=== PATIENT | female | born 1950 | race Caucasian/White ===

== ENCOUNTER 2020-01-20 11:27 | Emergency (ER) | payer MEDICARE ==
[2020-01-20] MEDS ORDERED: Meclizine HCl 25 MG TAB ONE (12:32)
--- NOTE | 2020-01-20 12:37 | CT ---
CT Brain WO Con History: Dizziness with abnormal features Comparison: CT brain 2007 Findings: Mild atrophy. 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 No acute hemorrhage or territorial infarction. No midline shift. No mass effect. Mild subcortical simeno rovascular ischemic changes, greatest in the frontal lobes. Calvarium is intact. Paranasal sinuses and mastoids are clear. Impression: Chronic findings. No acute intracranial abnormality.
[2020-01-20 12:56] LABS: PTT 34.9 SEC (22.9-36.1)
[2020-01-20 13:13] LABS: ALT (SGPT) 14 U/L (8-55); AST (SGOT) 18 U/L (5-34); Albumin 4.1 g/dL (3.4-4.8); Alkaline Phosphatase 71 U/L (40-110); Anion Gap 14 mmol/L (10-20); BUN (Urea Nitrogen) 14 mg/dL (9.8-20.1); Band 2 % (5-11); Bilirubin, Total 0.3 mg/dL (0.2-1.2); Calc. Creatinine Clearance 0 mL/min (70-130); Carbon Dioxide 24 mmol/L (23-31); Chloride 107 mmol/L (98-107); Eosinophils 3 % (0-10); Estimated GFR-MDRD 77; Globulin 2.5 g/dL (2.4-3.5); Glucose 107 mg/dL (83-110); Hemoglobin 11.9 g/dL (12.0-16.0); Lymphocytes 10 % (21-51); MDiff Complete? YES; Magnesium 1.9 mg/dL (1.6-2.6); Mean Corpuscular HGB CONC 31.3 g/dL (32.0-36.0); Mean Corpuscular Hemoglobin 26.9 pg (27.0-31.0); Mean Corpuscular Volume 85.9 fL (78.0-98.0); Mean Platelet Volume 7.7 fL (7.4-10.4); Monocytes 2 % (0-10); Neutrophil 71 % (42-75); Platelet Count 200 thou/uL (130-400); Platelet Morphology Comment Appears Adequate; Protein, Total 6.6 g/dL (6.0-8.3); RBC Distribution Width 12.6 % (11.5-14.5); Reactive Lymphocytes 12 % (0-10); Red Blood Cell (RBC) Count 4.43 mill/uL (4.20-5.40); Sodium 141 mmol/L (136-145); White Blood Cell (WBC) Count 10.3 thou/uL (4.8-10.8)
== END 2020-01-20 14:20 | disposition home or self-care (01) ==
LOC: MADERS 11:27
DX: H81.10 Benign paroxysmal vertigo, unspecified ear (principal); J06.9 Acute upper respiratory infection, unspecified; E78.5 Hyperlipidemia, unspecified; E78.00 Pure hypercholesterolemia, unspecified; I10 Essential (primary) hypertension; Z79.82 Long term (current) use of aspirin; Z79.899 Other long term (current) drug therapy
CPT/HCPCS: 70450; 80053; 83735; 85025; 85610; 85730; 93005; J8597

== ENCOUNTER 2020-04-02 14:51 | Emergency (ER) | payer MEDICARE ==
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
== END 2020-04-02 16:16 | disposition home or self-care (01) ==
LOC: MADERS 14:51
DX: S60.212A Contusion of left wrist, initial encounter (principal); S50.812A Abrasion of left forearm, initial encounter; E78.5 Hyperlipidemia, unspecified; E78.00 Pure hypercholesterolemia, unspecified; I10 Essential (primary) hypertension; Z79.82 Long term (current) use of aspirin; Z79.01 Long term (current) use of anticoagulants; Z79.899 Other long term (current) drug therapy; Y00.XXXA Assault by blunt object, initial encounter